=== PATIENT | male | born 1980 ===

== ENCOUNTER 2022-09-17 05:51 | Emergency (ER) | payer OTHER ==
[~2022-09-17] VITALS: Ht 165.1 cm; Wt 77.1 kg
[2022-09-17 06:49] LABS: Source, Urine Clean Catch
[2022-09-17 06:49] LABS: BASOPHILS ABSOLUTE AUTO 0.02 K/mm3 (0.00-0.23); BASOPHILS PERCENT AUTO 0 % (0-2); EOSINOPHILS PERCENT AUTO 3 % (0-6); Hematocrit 42.5 % (37.0-53.0); IMMATURE GRAN ABSOLUTE AUTO 0.01 K/mm3 (0.00-0.10); IMMATURE GRAN PERCENT AUTO 0 % (0-1); LYMPHOCYTES ABSOLUTE AUTO 2.86 K/mm3 (0.84-5.20); LYMPHOCYTES PERCENT AUTO 39 % (21-46); MONOCYTES ABSOLUTE AUTO 0.66 K/mm3 (0.16-1.47); MONOCYTES PERCENT AUTO 9 % (4-13); Mean Corpuscular HGB 31.4 pg (26.0-34.0); Mean Corpuscular HGB Conc 35.3 g/dL (31.5-36.5); Mean Corpuscular Volume 89 fL (80-100); Mean Platelet Volume 10.5 fL (9.1-12.4); NEUTROPHILS ABSOLUTE AUTO 3.55 K/mm3 (1.96-9.15); NEUTROPHILS PERCENT AUTO 49 % (41-73); Platelet Count 181 K/mm3 (150-400); RDW Coefficient Variation 12.2 % (11.7-14.2); RDW Standard Deviation 40.1 fL (35.1-46.3); Red Blood Cell Count 4.78 M/mm3 (4.30-5.90)
[2022-09-17 06:55] LABS: Appearance, Urine Clear (Clear); Bilirubin, Urine Neg (Neg); Blood, Urine 3+ (Neg); Color, Urine Yellow (P-Yellow); Glucose Qualitative, Urine Neg (Neg); Ketones, Urine Neg (Neg); Leukocyte Esterase, Urine Neg (Neg); Nitrite, Urine Neg (Neg); Protein, Urine 2+ (Neg); Specific Gravity, Urine 1.025 (1.003-1.022); Urobilinogen, Urine NORM (Normal)
[2022-09-17 06:56] LABS: Albumin, Blood 3.7 g/dL (3.4-5.0); Bilirubin, Total 0.5 mg/dL (0.1-1.0); Bun/Creatinine Ratio 24.7 (12.0-20.0); Calcium, Blood 8.5 mg/dL (8.5-10.1); Creatinine, Blood 0.85 mg/dL (0.60-1.20); Globulin, Blood 3.7 g/dL (2.2-4.0); Potassium, Blood 3.5 mmol/L (3.5-5.5); Total Protein, Blood 7.4 g/dL (6.4-8.2)
[2022-09-17 07:13] LABS: Bacteria Few /hpf; Squamous Epithelial Cells Many /hpf (Few); White Blood Cells, Urine 0-2 /hpf (0-5)
[2022-09-17 07:15] LABS: Calcium Oxalate Crystals Many /hpf
[2022-09-17] MEDS ORDERED: OXYC5 PO (10:52)
== END 2022-09-17 11:06 | disposition home or self-care (01) ==
LOC: ER 05:51
PROVIDERS: Emergency Medicine
DX: N13.2 Hydronephrosis with renal and ureteral calculous obstruction (principal)
CPT/HCPCS: 74176; 80053; 81001; 83690; 85025; J1170; J1885; J2405; J7030

== ENCOUNTER 2022-09-21 00:39 | Emergency (ER) | payer OTHER ==
[~2022-09-21 00:39] MED LIST: OXYC5 PO
[2022-09-21 07:19] LABS: Albumin, Blood 3.5 g/dL (3.4-5.0); Albumin/Globulin Ratio 0.8 (0.8-1.8); BASOPHILS ABSOLUTE AUTO 0.02 K/mm3 (0.00-0.23); BASOPHILS PERCENT AUTO 0 % (0-2); Bilirubin, Total 1.1 mg/dL (0.1-1.0); Bun/Creatinine Ratio 9.1 (12.0-20.0); Calcium, Blood 8.9 mg/dL (8.5-10.1); Creatinine, Blood 0.99 mg/dL (0.60-1.20); EOSINOPHILS ABSOLUTE AUTO 0.01 K/mm3 (0.00-0.68); EOSINOPHILS PERCENT AUTO 0 % (0-6); Globulin, Blood 4.5 g/dL (2.2-4.0); Hematocrit 40.7 % (37.0-53.0); Hemoglobin 14.6 g/dL (13.5-17.5); IMMATURE GRAN ABSOLUTE AUTO 0.03 K/mm3 (0.00-0.10); IMMATURE GRAN PERCENT AUTO 0 % (0-1); LYMPHOCYTES ABSOLUTE AUTO 1.22 K/mm3 (0.84-5.20); LYMPHOCYTES PERCENT AUTO 10 % (21-46); MONOCYTES ABSOLUTE AUTO 0.87 K/mm3 (0.16-1.47); MONOCYTES PERCENT AUTO 7 % (4-13); Mean Corpuscular HGB 31.1 pg (26.0-34.0); Mean Corpuscular HGB Conc 35.9 g/dL (31.5-36.5); Mean Corpuscular Volume 87 fL (80-100); NEUTROPHILS ABSOLUTE AUTO 10.04 K/mm3 (1.96-9.15); NEUTROPHILS PERCENT AUTO 82 % (41-73); Platelet Count 183 K/mm3 (150-400); Potassium, Blood 4.4 mmol/L (3.5-5.5); RDW Coefficient Variation 11.8 % (11.7-14.2); RDW Standard Deviation 37.6 fL (35.1-46.3); White Blood Cell Count 12.19 K/mm3 (4.00-11.30)
[2022-09-21 07:20] LABS: Appearance, Urine Clear (Clear); Bilirubin, Urine Neg (Neg); Blood, Urine 3+ (Neg); Color, Urine Pale Yellow (P-Yellow); Glucose Qualitative, Urine Neg (Neg); Ketones, Urine Neg (Neg); Leukocyte Esterase, Urine Neg (Neg); Nitrite, Urine Neg (Neg); Protein, Urine Neg (Neg); Urobilinogen, Urine NORM (Normal)
[2022-09-21 07:21] LABS: Bacteria Rare /hpf; Squamous Epithelial Cells Few /hpf (Few); White Blood Cells, Urine 0-2 /hpf (0-5)
== END 2022-09-21 04:20 | disposition home or self-care (01) ==
LOC: ER 00:39
PROVIDERS: Student in an Organized Health Care Education/Training Program
DX: N23 Unspecified renal colic (principal); Z87.442 Personal history of urinary calculi
CPT/HCPCS: 80053; 81001; 85025; A9270; J1885

== ENCOUNTER 2023-06-02 06:09 | Day surgery (SDC) | payer OTHER ==
[~2023-06-02] VITALS: Ht 165.1 cm; Wt 85.2 kg
[~2023-06-02 06:09] MED LIST changes: +TAMSULOSIN HCL0.4 M1 PO; +TOPICAINE113 GM TOP
--- NOTE | 2023-06-02 07:33 | NUR ---
06/02/23 0733 EMERSON CHRISTENSEN PT'S DAUGHTER BOO IS THE OIL SPRAYING MACHINE OPERATOR PER PT PREFERENCE , SITTING AT PT'S BEDSIDE. PRE-OP TEACHING PROVIDED, NO FURTHER QUESTIONS AT THIS TIME. CALL LIGHT WITHIN REACH. PT IS a&0 X4, COOPERATIVE AND CALM WITH CARE. PT UNDERSTANDS WELSH AND PRIMARY LANGUAGE, [facility].
--- NOTE | 2023-06-02 08:52 | NUR ---
06/02/23 0852 Raisa Redmond PT UP IN BED, CONVERSING WITH DAUGHTER. VSS. NO SIGNS OF DISTRESS. REPORTS PAIN 3/10, ONE TAB OXYCODONE/APAP 5/325MG GIVEN FOR PAIN RELIEF ORDERED BY DR. VARGAS.
[2023-06-02 09:35] VITALS: BP 109/90
== END 2023-06-02 09:38 | disposition home or self-care (01) ==
LOC: ORSCSDS 06:09 → ORD 07:30 → ORSCSDS 07:30
PROVIDERS: Surgery
PROC: 0DQQXZZ Repair Anus, External Approach (ICD-10-PCS; principal; 2023-06-02 07:30)
DX: K60.3 Anal fistula (principal); K64.4 Residual hemorrhoidal skin tags
CPT/HCPCS: A9270; J0694; J1100; J2405; J2704; J3010; J7120

== ENCOUNTER 2023-11-02 06:41 | Day surgery (SDC) | payer OTHER ==
[2023-11-02] VITALS (10 sets, daily range): BP systolic 118–134; BP diastolic 75–91
[~2023-11-02] VITALS: Ht 157.5 cm; Wt 80.8 kg
--- NOTE | 2023-11-02 07:45 | NUR ---
THERE WAS DIFFICULTY UNDERSTANDING FORMS AND IT WAS UNCLEAR IF PATIENT WAS GETTING A CORRECT INTERPRETATION OF PROCESS SO PROVIDED INTERPRETATION PHONE WAS UTILIZED FOR PREOP ENCOUNTER.
--- NOTE | 2023-11-02 07:59 | NUR ---
WHEN PT ARRIVED, DAUGHTER WAS/IS PRESENT AND AGREED TO INTERPRET FOR THE PT. I ASKED IF HE WANTED OR NEEDED AN GLUE JOINTER OPERATOR AND HE AND THE DAUGHTER REFUSED. WHEN TRYING TO SIGN BLOOD CONSENT AND RELEASE OF INFORMATION CONSENT, THE DAUGHTER WOULD ANSWER THE QUESTION FOR THE PT, EVEN AFTER I ASKED HER TO ASK HER FATHER. I TOLD HER THAT THE MOST ETHICAL AND SAFE THING TO DO SO THAT THE PT FEELS SAFE AND KNOWS WHAT HE IS SIGNING WOULD BE TO GET AN OFFICIAL GLUE JOINTER OPERATOR. MILLY QUINTERO RN IS CHARGE TODAY AND TRIED TO USE HER PHONE WITH A INSOLE COVERER KENJI BUT THE PATIENT COULD NOT READ THE TRANSLATED WORDS. I PROVIDED A BLOOD CONSENT IN ARMENIAN, BUT THE DAUGHTER AND PT COULD NOT UNDERSTAND IT. THEY AGREED THAT A ARMENIAN SPEAKING GLUE JOINTER OPERATOR WOULD BE BENEFICIAL. I USED THE AUXILARY SERVICE TO TALK WITH THE PATIENT, EXPLAIN THE BLOOD CONSENT AND PROCESS FOR THE IV. THE PATIENT AND GLUE JOINTER OPERATOR SHOWED NO AND EXPRESSED NO TROUBLE UNDERSTANDING EACHOTHER. THE DAUGHTER AND PT EXPRESSED CONFUSION OVER THE PROCEDURE SO I TOLD THEM I WOULD GET THE GLUE JOINTER OPERATOR TO HELP WHEN THE DOCTOR WITH TRANSLATING AND UNDERSTANDING. WHEN DR. VARGAS ARRIVED, HE BEGAN SPEAKING IN BENINESE TO THE PT AND DAUGHTER, THEY WERE EXPRESSING CONCERN AND CONFUSION ABOUT THE PROCEDURE AND HOW IT COMPARED TO LAST TIME. I ASKED DR. VARGAS IF I COULD GET THE AUXILARY INTERPRETATION SERVICE ON THE PHONE AGAIN, PER THE PT'S REQUEST AND HE TOLD ME THAT THE PATIENT CANNOT UNDERSTAND REGULAR ARMENIAN BECAUSE HE SPEAKS A DIALECT AND HE THINKS WE WILL NOT HAVE IT AVAILABLE. I ASKED THE DAUGHTER WHAT THE DIALECT WAS, TOLD THEM I WANTED TO TRY TO GET THE APPROPRIATE TRANSLATION SERVICE FOR THEM, AND THE CHART WE HAVE WITH LANGUAGES AVAILABLE DID NOT SHOW ANY DIALECTS FOR ARMENIAN. DR. VARGAS PROCEEDED TO TALK WITH THE PATIENT AND DAUGHTER IN BENINESE, HE TOLD ME, "I THINK THE PATIENT IS OKAY WITH THIS, I AM OKAY WITH THIS, WE HAVE DONE THIS PROCEDURE ONCE BEFORE." I TOLD DR. VARGAS THAT I WANTED TO MAKE SURE THE PATIENT UNDERSTOOD FULLY WHAT HE WAS HAVING DONE AND THAT IT WAS MY JOB TO MAKE SURE THEY UNDERSTOOD AND FELT SAFE. DR. LOO CAME TO SEE PATIENT, I OFFERED THE INTERPRETATION PHONE AGAIN, REASSURED THE CIRCULATING NURSE THAT THE PATIENT AND I HAD BEEN CONVERSING WITH THE SPANSI[place] SPEAKING INTERPRETOR ALREADY, AND THE PT EXPRESSED NO MISUNDERSTANDING DUE TO LANGUAGE BARRIER. INTERPRETOR REFUSED, DAUGHTER USED INTERPRETOR DESPITE MY CONCERNS AND VOICED CONCERNS THAT DAUGHTER WAS MISUNDERSTANDING MEDICAL VERBAGE AND NOT RELAYING INFORMATION OR QUESTIONS TO PATIENT. WILL LOOK FURTHER INTO MEDICAL POLICY.
--- NOTE | 2023-11-02 11:20 | NUR ---
PT DAUGHTER BEEN TO BEDSIDE WHEN PT TO STEP DOWN.PT'S DAUGHTER TRANSLATING FOR PT.PT/DAUGHTER REPORT NOT WANTING TO USE EMERGENCY MEDICINE PHONE. PT/DAUGHTER REPORTS THAT [place] PAPERWORK IS FINE, DOES NOT WISH TO HAVE OTHER LANGUAGE. PT REPORTS PAIN TOLERABLE.DENIES N/V.DRESSING C/D/I. PT REPORTS READY TO GO HOME. Patient up to Ambulate independently. Gait steady. Discharge instructions reviewed with patient. Patient verbalizes understanding. Copy given to patient to take home, WELL DAUGHTER. Patient States Post-Procedure ride home has been arranged. Discharged via wheelchair to private car for ride home.PT GIVEN GAUZE FOR IF NEEDING AT HOME. GAUZE CDI NOW.
== END 2023-11-02 11:20 | disposition home or self-care (01) ==
LOC: ORSCMMR 06:41 → ORD 08:00 → ORSCMMR 11:20
PROVIDERS: Surgery
PROC: 3E0H3GC Introduction of Other Therapeutic Substance into Lower GI, Percutaneous Approach (ICD-10-PCS; principal; 2023-11-02 08:00)
PROC: 0DBQXZZ Excision of Anus, External Approach (ICD-10-PCS; principal; 2023-11-02 08:00)
DX: K60.2 Anal fissure, unspecified (principal); E66.9 Obesity, unspecified; Z68.32 Body mass index [BMI] 32.0-32.9, adult
CPT/HCPCS: A9270; J0171; J0295; J0585; J1100; J1885; J2250; J2405; J2704; J3010; J7120

== ENCOUNTER → 2024-11-18 | Outpatient (CLI) | payer OTHER | LOC: LAB 09:59 → LAB SHORT 09:59 | DX: L65.9 Nonscarring hair loss, unspecified (principal) | CPT/HCPCS: 84443 ==

== ENCOUNTER → 2024-11-21 | Outpatient (CLI) | payer OTHER | LOC: LAB SHORT 07:52 → PLD 07:52 | DX: B35.1 Tinea unguium (principal); L60.2 Onychogryphosis | CPT/HCPCS: 88305; 88312 ==